=== PATIENT | female | born 1960 | race Two or more races ===

== ENCOUNTER 2024-01-22 10:56 | Outpatient (OUT) | payer OTHER, SELFPAY ==
--- NOTE | 2024-01-22 11:05 | MM_ITS ---
Patient Name: KANWAL PATE MR#: [id number] : 1960 Exam Date: 01/22/2024 Ordering Doctor: LESLEY WONG CNP RADIOLOGY REPORT PROCEDURE: MM TOMOSYNTHESIS SCREENING BI COMPARISON: None. INDICATIONS: Screening Calculator Name NCI Breast Cancer Risk Assessment Tool 5 Year Breast Cancer Risk 1.50% Lifetime Breast Cancer Risk 7.20% Personal Breast Cancer No Personal Ovarian Cancer No Treatments None Family Cancers None LOCATION: [facility] BREAST COMPOSITION: There are scattered areas of fibroglandular density. FINDINGS: DIAGNOSTIC CATEGORY 0--INCOMPLETE: NEED ADDITIONAL IMAGING EVALUATION. Scattered benign-appearing lymph nodes are present. RIGHT BREAST: 6.7 mm well-circumscribed nodule lower inner quadrant anterior right breast. Spot imaging and ultrasound follow-up recommended. LEFT BREAST: No significant suspicious finding. RECOMMENDATIONS: ADDITIONAL MAMMOGRAPHIC VIEWS REQUIRED: RIGHT BREAST - spot compression ULTRASOUND: RIGHT BREAST PLEASE NOTE: A NORMAL MAMMOGRAM DOES NOT EXCLUDE THE POSSIBILITY OF BREAST CANCER. A CLINICALLY SUSPICIOUS PALPABLE LUMP SHOULD BE BIOPSIED. Dictated by: Rivera Bose MD on 01/22/2024 at 12:07 Approved by: Rivera Bose MD on 01/22/2024 at 12:09
== END 2024-01-22 10:57 | disposition home or self-care (01) ==
LOC: MAMMO 11:00
PROVIDERS: PCP Nurse Practitioner Family; Visit Provider Nurse Practitioner Family
DX: Z12.31 Encounter for screening mammogram for malignant neoplasm of breast (principal); N63.14 Unspecified lump in the right breast, lower inner quadrant
CPT/HCPCS: 77063; 77067

== ENCOUNTER 2024-02-11 12:31 | Outpatient (OUT) | payer OTHER, SELFPAY ==
--- NOTE | 2024-02-11 12:35 | US_ITS ---
Patient Name: KANWAL PATE MR#: [id number] : 1960 Exam Date: 02/11/2024 Ordering Doctor: LESLEY WONG CNP RADIOLOGY REPORT PROCEDURE: MM DIAGNOSTIC MAMMO UNILAT RT, 02/11/2024, 12:43 US BREAST RT LIMITED, 02/11/2024, 13:43 COMPARISON: MM TOMOSYNTHESIS SCREENING BI, 01/22/2024. INDICATIONS: other abnormal findings on diagnostic imaging of breast R92. Calculator Name NCI Breast Cancer Risk Assessment Tool 5 Year Breast Cancer Risk 1.50% Lifetime Breast Cancer Risk 7.20% Personal Breast Cancer No Personal Ovarian Cancer No Treatments None Family Cancers None LOCATION: [facility] BREAST COMPOSITION: There are scattered areas of fibroglandular density. FINDINGS: DIAGNOSTIC CATEGORY 4--SUSPICIOUS FOR MALIGNANCY. FINDING DOES NOT EXHIBIT CLASSIC FINDINGS OF BREAST CANCER: 7 mm right breast nodule on spot images with a vascular mass at 5:00 measuring 4.4 x 4.2 x 4.7 mm. This is indeterminate, ultrasound core biopsy recommended RECOMMENDATIONS: ULTRASOUND-GUIDED CORE BIOPSY: RIGHT BREAST PLEASE NOTE: A NORMAL MAMMOGRAM DOES NOT EXCLUDE THE POSSIBILITY OF BREAST CANCER. A CLINICALLY SUSPICIOUS PALPABLE LUMP SHOULD BE BIOPSIED. Dictated by: Rivera Bose MD on 02/11/2024 at 14:25 Approved by: Rivera Bose MD on 02/11/2024 at 14:31
== END 2024-02-11 12:32 | disposition home or self-care (01) ==
LOC: MAMMO 12:31
PROVIDERS: PCP Nurse Practitioner Family; Visit Provider Nurse Practitioner Family
DX: R92.8 Other abnormal and inconclusive findings on diagnostic imaging of breast (principal)
CPT/HCPCS: 76642; 77065

== ENCOUNTER 2024-02-23 09:02 | Outpatient (OUT) | payer OTHER, SELFPAY ==
--- OUTSIDE RECORDS SUMMARY | 2024-02-23 09:05 | XMS_ITS | CCD ---
Author Organization [facility] Care Team Providers Care Research Environmental Scientist Name Role Phone Petar Klein MD Primary Care Provider ROSETTE BURK Referring Unavailable PETAR KLEIN Primary Care Unavailable ROSETTE BURK Referring Unavailable PETAR KLEIN Primary Care Unavailable Problems Problem Classification Problem Date Documented Da te Episodic/Chronic Nonmalignant breast conditions (2 sources) Lump in lower inner quadrant of right breast; Translations: [Unspecified lump in the right breast, lower inner quadrant] Episodic Results Test Name Value Interpretation Reference Range Facility DBT Breast - bilateral diagn osticon 07-04-2021 Radiology Study observation (narrative) [facility] MG MAMMO DIGITAL DIAGNOSTIC W MICHAEL BILATon 07-04-2021 MG MAMMO DIGITAL DIAGNOSTIC W MICHAEL BILAT EXAMINATION TYPE: US BREAST LIMITED RIGHT, MG MAMMO DIGITAL DIAGNOSTIC W MICHAEL BILAT [id number] DATE OF EXAM : 07/04/2021 10:15 AM PRIOR STUDIES: 2020 REASON FOR STUDY: Follow-up for probably benign right breast mass. TECHNIQUE: Multiple low dose images were obtained in each projection. These low-dose images were reconstructed into 1 mm thick slices and reviewed on the soft copy workstation along with additional reconstructed standard digital bilateral mammogram images. Computer-aided detection utilizing IntheGloCAD reader has been performed. RIGHT breast ultrasound was performed. BREAST COMPOSITION: B - There are scattered areas of fibroglandular density. FINDINGS: Mammogram Findings: There are no new suspicious findings in either breast. The previously identified mass in the lower inner right breast based in size mammographically. Ultrasound Findings: Targeted right breast ultrasound was performed by the coffee grinder. In the 5 o'clock axis III cm from the nipple, there is redemonstration of an oval, circumscribed anechoic to hypoechoic mass measuring 3 x 3 x 3 mm. Previously this measured 5 x 4 x 4 mm. This has findings most consistent with either a benign complicated cyst or cyst cluster. IMPRESSION: Interval decrease in size of previously identified right breast mass is suggestive of benignity. No further specific follow-up imaging of this area is required. Recommend return to annual tomosynthesis. BI-RADS Code: 2 - BENIGN RECOMMENDATION: Return to annual mammography. Return to annual mammography. COMMENTS: The findings and recommendations were discussed with the patient and any necessary follow-up imaging evaluation was scheduled prior to her departure from our department. Additionally, the results of this examination will be immediately mailed to the patient. -------- FINAL REPORT -------- Dictated By: Ksenia Robin Dictated Date: 07/04/2021 10:24 Assigned Physician: Ksenia Robin Reviewed and Electronically Signed By: Ksenia Robin Signed Date: 07/04/2021 10:30 Workstation ID: [id number] Transcribed By: Self Edit Transcribed Date: 07/04/2021 10:24 Normal [facility] Panel Information 07-04 Interval decrease in size of previously identified right breast mass is suggestive of benignity. No further specific follow-up imaging of this area is required. Recommend return to annual tomosynthesis. BI-RADS Code: 2 - BENIGN RECOMMENDATION: Return to annual mammography. Return to annual mammography. COMMENTS: The findings and recommendations were discussed with the patient and any necessary follow-up imaging evaluation was scheduled prior to her departure from our department. Additionally, the results of this examination will be immediately mailed to the patient. -------- FINAL REPORT -------- Dictated By: Ksenia Robin Dictated Date: 07/04/2021 10:24 Assigned Physician: Ksenia Robin Reviewed and Electronically Signed By: Ksenia Robin Signed Date: 07/04/2021 10:30 Workstation ID: [id number] Transcribed By: Self Edit Transcribed Date: 07/04/2021 10:24 [employer] EXAMINATION TYPE: US BREAST LIMITED RIGHT, MG MAMMO DIGITAL DIAGNOSTIC W MICHAEL BILAT [id number] DATE OF EXAM : 07/04/2021 10:15 AM PRIOR STUDIES: 2020 REASON FOR STUDY: Follow-up for probably benign right breast mass. TECHNIQUE: Multiple low dose images were obtained in each projection. These low-dose images were reconstructed into 1 mm thick slices and reviewed on the soft copy workstation along with additional reconstructed standard digital bilateral mammogram images. Computer-aided detection utilizing NewsyD reader has been performed. RIGHT breast ultrasound was performed. BREAST COMPOSITION: B - There are scattered areas of fibroglandular density. FINDINGS: Mammogram Findings: There are no new suspicious findings in either breast. The previously identified mass in the lower inner right breast based in size mammographically. Ultrasound Findings: Targeted right breast ultrasound was performed by the coffee grinder. In the 5 o'clock axis III cm from the nipple, there is redemonstration of an oval, circumscribed anechoic to hypoechoic mass measuring 3 x 3 x 3 mm. Previously this measured 5 x 4 x 4 mm. This has findings most consistent with either a benign complicated cyst or cyst cluster. Ksenia Erazo MD - 07/04/2021 EXAMINATION TYPE: US BREAST LIMITED RIGHT, MG MAMMO DIGITAL DIAGNOSTIC W MICHAEL BILAT [id number] DATE OF EXAM : 07/04/2021 10:15 AM PRIOR STUDIES: 2020 REASON FOR STUDY: Follow-up for probably benign right breast mass. TECHNIQUE: Multiple low dose images were obtained in each projection. These low-dose images were reconstructed into 1 mm thick slices and reviewed on the soft copy workstation along with additional reconstructed standard digital bilateral mammogram images. Computer-aided detection utilizing IntheGloCAD reader has been performed. RIGHT breast ultrasound was performed. BREAST COMPOSITION: B - There are scattered areas of fibroglandular density. FINDINGS: Mammogram Findings: There are no new suspicious findings in either breast. The previously identified mass in the lower inner right breast based in size mammographically. Ultrasound Findings: Targeted right breast ultrasound was performed by the coffee grinder. In the 5 o'clock axis III cm from the nipple, there is redemonstration of an oval, circumscribed anechoic to hypoechoic mass measuring 3 x 3 x 3 mm. Previously this measured 5 x 4 x 4 mm. This has findings most consistent with either a benign complicated cyst or cyst cluster. IMPRESSION: Interval decrease in size of previously identified right breast mass is suggestive of benignity. No further specific follow-up imaging of this area is required. Recommend return to annual tomosynthesis. BI-RADS Code: 2 - BENIGN RECOMMENDATION: Return to annual mammography. Return to annual mammography. COMMENTS: The findings and recommendations were discussed with the patient and any necessary follow-up imaging evaluation was scheduled prior to her departure from our department. Additionally, the results of this examination will be immediately mailed to the patient. -------- FINAL REPORT -------- Dictated By: Ksenia Robin Dictated Date: 07/04/2021 10:24 Assigned Physician: Ksenia Robin Reviewed and Electronically Signed By: Ksenia Robin Signed Date: 07/04/2021 10:30 Workstation ID: [id number] Transcribed By: Self Edit Transcribed Date: 07/04/2021 10:24 [facility] No Panel InformationOrdered By: Ksenia Mullen on 07-04-2021 [facility] Work Phone: US BREAST LIMITED RIGHTon US BREAST LIMITED RIGHT EXAMINATION TYPE : US BREAST LIMITED RIGHT, MG MAMMO DIGITAL DIAGNOSTIC W MICHAEL BILAT [id number] DATE OF EXAM : 07/04/2021 10:15 AM PRIOR STUDIES: 2020 REASON FOR STUDY: Follow-up for probably benign right breast mass. TECHNIQUE: Multiple low dose images were obtained in each projection. These low-dose images were reconstructed into 1 mm thick slices and reviewed on the soft copy workstation along with additional reconstructed standard digital bilateral mammogram images. Computer-aided detection utilizing IntheGloCAD reader has been performed. RIGHT breast ultrasound was performed. BREAST COMPOSITION: B - There are scattered areas of fibroglandular density. FINDINGS: Mammogram Findings: There are no new suspicious findings in either breast. The previously identified mass in the lower inner right breast based in size mammographically. Ultrasound Findings: Targeted right breast ultrasound was performed by the coffee grinder. In the 5 o'clock axis III cm from the nipple, there is redemonstration of an oval, circumscribed anechoic to hypoechoic mass measuring 3 x 3 x 3 mm. Previously this measured 5 x 4 x 4 mm. This has findings most consistent with either a benign complicated cyst or cyst cluster. IMPRESSION: Interval decrease in size of previously identified right breast mass is suggestive of benignity. No further specific follow-up imaging of this area is required. Recommend return to annual tomosynthesis. BI-RADS Code: 2 - BENIGN RECOMMENDATION: Return to annual mammography. Return to annual mammography. COMMENTS: The findings and recommendations were discussed with the patient and any necessary follow-up imaging evaluation was scheduled prior to her departure from our department. Additionally, the results of this examination will be immediately mailed to the patient. -------- FINAL REPORT -------- Dictated By: Ksenia Robin Dictated Date: 07/04/2021 10:24 Assigned Physician: Ksenia Robin Reviewed and Electronically Signed By: Ksenia Robin Signed Date: 07/04/2021 10:30 Workstation ID: [id number] Transcribed By: Self Edit Transcribed Date: 07/04/2021 10:24 Normal [facility] US Breast Limited Righton Radiology Study observation (narrative) [facility] US Breast Uni Limited RTo n 01-03-2021 SC US Breast Uni Limited RT EXAMINATION TYPE: SC US Breast Uni Limited RT DATE OF EXAM : 01/03/2021 9:54 AM PATIENT HISTORY: Menarche at age 17. First Full-Term at age 25. Postmenopausal. Maternal aunt had breast cancer. PRIOR STUDIES: 08/18/2003, 06/07/2007, 12/24/2009, 07/02/2020 REASON FOR STUDY: Probably benign right breast mass, 6 month follow-up TECHNIQUE: Targeted ultrasound of the right breast was performed. FINDINGS: At 5 o'clock, 3 cm from the nipple, and just deep to the skin, there is a circumscribed round mass measuring 0.5 x 0.4 x 0.4 cm, unchanged in size. The mass contains echogenic internal reflectors similar to the prior study. There has been no significant interval change. IMPRESSION: Stable benign-appearing 0.5 cm right breast mass suggestive of a complicated cyst. Continued surveillance with targeted ultrasound is recommended in 6 months when the patient is due for her next bilateral mammogram. BI-RADS Code: 3-Probably benign RECOMMENDATION: 1. Diagnostic Ultrasound Right in 6 months 2. Diagnostic Tomosynthesis Bilateral in 6 months COMMENTS: The findings and recommendations were discussed with the patient and any necessary follow-up imaging evaluation was scheduled prior to her departure from our department. Additionally, the results of this examination will be immediately mailed to the patient. Leidy Bautista thanks you for the opportunity to care for your patient. Workstation ID: [id number] - [id number] FINAL REPORT Dictated By: Rosette Burk MD 01/03/2021 09:55 Assigned Physician: Rosette Burk MD Reviewed and Electronically Signed By: Rosette Burk MD 01/03/2021 09:57 Transcribed by: JESSICA 01/03/2021 09:55 Technologist: [facility] US Breast Uni Limited RTo n 07-05-2020 SC US Breast Uni Limited RT EXAMINATION TYPE: SC US Breast Uni Limited RT DATE OF EXAM : 07/05/2020 11:16 AM PATIENT HISTORY: Menarche at age 17. First Full-Term at age 25. Postmenopausal. Maternal aunt had breast cancer. PRIOR STUDIES: 08/18/2003, 06/07/2007, 12/24/2009, 07/02/2020 REASON FOR STUDY: mass. TECHNIQUE: Focused sonographic imaging. FINDINGS: Within the anterior right breast 5 o'clock position 3 cm from the nipple there is a predominantly anechoic avascular oval mass with circumscribed margins demonstrating posterior enhancement measuring 5 x 3 x 4 mm. It does contain a few bright reflectors suggestive of calcifications. This corresponds to the mass on recent screening mammogram. IMPRESSION: Benign-appearing 5 mm mass 5 o'clock right breast suggestive of a complicated cyst BI-RADS Code: 3-Probably benign RECOMMENDATION: 1. Diagnostic Ultrasound Right in 6 months COMMENTS: Results of the exam were discussed with the patient and will immediately be mailed to the patient. Leidy Bautista thanks you for the opportunity to care for your patient. Workstation ID: [id number] - [id number] FINAL REPORT Dictated By: Fabi Gomez MD 07/05/2020 11:19 Assigned Physician: Fabi Gomez MD Reviewed and Electronically Signed By: Fabi Gomez MD 07/05/2020 11:21 Transcribed by: JESSICA 07/05/2020 11:19 Technologist: [facility] Mammo Digital Screening b ilat (NB)on 07-02-2020 DRAKE Mammo Digital Screening bilat (NB) EXAMINATION TYPE: DRAKE Mammo Digital Screening bilat (NB) DATE OF EXAM ORDERED: 07/02/2020 11:22 AM PATIENT HISTORY: Menarche at age 17. First Full-Term at age 25. Postmenopausal. Maternal aunt had breast cancer. PRIOR STUDIES: 08/18/2003, 06/07/2007, 12/24/2009 REASON FOR STUDY: Breast Screening TECHNIQUE: Digital mammography views were obtained. Computer-aided detection utilizing IntheGloCAD reader has been performed. BREAST COMPOSITION: There are scattered areas of fibroglandular density FINDINGS: There is a new mass in the anterior 3rd right breast 5 o'clock position 1.5 cm from the nipple, measuring 5 x 4 x 5 mm in size. Diagnostic evaluation recommended. No other new mass or change in architectural pattern or distribution seen. No suspicious calcifications in either breast. No adenopathy IMPRESSION: Diagnostic breast imaging evaluation recommended for new mass right breast measuring 5 x 4 x 5 mm at 5 o'clock, 1.5 cm from nipple. BI-RADS Code: 0-Needs Additional Imaging Evaluation RECOMMENDATION: Diagnostic Breast Ultrasound Right COMMENTS: No additional comments As per federal [place] guidelines, a result letter will be sent to the patient. [employer] thanks you for the opportunity to care for your patient. Workstation ID: [id number] - [id number] FINAL REPORT Dictated By: Damaris Barton MD 07/02/2020 11:41 Assigned Physician: Damaris Barton MD Reviewed and Electronically Signed By: Damaris Barton MD 07/02/2020 12:12 Transcribed by: JESSICA 07/02/2020 11:41 Technologist: JULIO Ward [facility] Lipid Profileon 07-01-2020 Cholesterol [Mass/Vol] 258 mg/dL High 95-195 Na [facility] Comment on above: Performed By: #### L IPP #### Performed at [facility], [address], [place] [address] Cholesterol in HDL [Mass/Vol] 97 mg/dL High 41-73 [facility] Comment on above: Performed By: #### L IPP #### Performed at [address] [address] Cholesterol in LDL [Mass/Vol] 144 mg/dL Normal 113-177 [facility] Comment on above: Performed By: #### L IPP #### Performed at [address] [address] Triglyceride [Mass/Vol] 88 mg/dL Normal 29-200 N [facility] Comment on above: Performed By: #### L IPP #### [place] [address] VLDL Cholesterol 18 mg/dL Normal 17-39 [facility] Comment on above: Performed By: #### L IPP #### Performed at [address] [address] TSHon 07-01-2020 TSH Qn 1.457 uIU/mL Normal 0.400-4.000 [facility] CBC Auto Diff Reflex Manualo n 06-30-2020 Automated Absolute Neutrophil 1.85 10*3/mm3 Normal [facility] Comment on above: Result Comment: Auto mated Absolute Neutrophil Count (ANC) is directly measured using a hematology instrument. ANC determined from manual differential cell count may differ. No [facility] reference range has been validated for this assay. Performed By: #### C D #### Performed at [facility], [address], [place] [address] Basophil 0.5 % Normal 0.2-1.6 [facility] Comment on above: Performed By: #### C D #### Performed at [facility], [address], [place] [address] Basophils (Bld) [#/Vol] 0.02 10*3/uL Normal [facility] Comment on above: Performed By: #### C D #### Performed at [facility], [address], [place] [address] Comment Normal [facility] Comment on above: Result Comment: No r eference range established for absolute counts. Performed at [facility], [address] [place] [address], [place] [address] Performed By: #### C D #### Performed at [facility], [facility], [place] [address] Differential Type Automated Normal [facility] Comment on above: Performed By: #### C D #### Performed at [place] [address] [facility], [place] [address] Eosinophil 6.0 % Normal 0.2-8.1 [facility] Comment on above: Performed By: #### C D #### Performed at [address], [place] [address] Eosinophils (Bld) [#/Vol] 0.25 10*3/uL Normal [facility] Comment on above: Performed By: #### C D #### [place] [address] Erythrocyte distribution width (RBC) [Ratio] 14.6 % High 10-14.1 [facility] Comment on above: Performed By: #### C D #### [place] [address] Lymphocyte 39.7 % Normal 9.0-51.0 [facility] Comment on above: Performed By: #### C D #### [place] [address] Lymphocytes (Bld) [#/Vol] 1.65 10*3/uL Normal [facility] Comment on above: Performed By: #### C D #### Performed at [place] [address] [facility], [place] [id number] MCH (RBC) [Entitic mass] 31.2 pg Normal 26.0-34.0 [facility] Comment on above: Performed By: #### C D #### Performed at [place] [address] [facility], [place] [address] MCHC (RBC) [Mass/Vol] 33.8 % Normal 31.0-37.0 [facility] Comment on above: Performed By: #### C D #### [place] [address] MCV (RBC) [Entitic vol] 92.1 fL Normal 80.0-100.0 N [facility] Comment on above: Performed By: #### C D #### [place] [address] Monocyte 9.4 % Normal 4.0-13.0 [facility] Comment on above: Performed By: #### C D #### [place] [address] Monocytes (Bld) [#/Vol] 0.39 10*3/uL Normal [facility] Comment on above: Performed By: #### C D #### [place] [address] Neutrophil 44.4 % Normal 40.8-78.2 [facility] Comment on above: Performed By: #### C D #### [place] [address] Neutrophils (Bld) [#/Vol] 1.85 10*3/uL Normal [facility] Comment on above: Performed By: #### C D #### [place] [address] Platelet mean volume (Bld) [Entitic vol] 9.7 fL Normal 9.3-13.0 [facility] Comment on above: Performed By: #### C D #### [place] [address] Platelets (Bld) [#/Vol] 217 10*3/uL Normal 142-508 [facility] Comment on above: Performed By: #### C D #### [place] [address] RBC (Bld) [#/Vol] 4.43 10*6/uL Normal 4.0-5.2 [facility] Comment on above: Performed By: #### C D #### [place] [address] WBC (Bld) [#/Vol] 4.2 10*3/uL Low 4.5-11.0 [facility] Comment on above: Performed By: #### C D #### [place] [address] Comprehensive Metabolic Pane abel 06-30-2020 Albumin [Mass/Vol] 4.7 g/dL Normal 3.4-5.2 [facility] Comment on above: Performed By: #### C MTP #### [place] [address] ALP [Catalytic activity/Vol] 99 U/L Normal 50-136 [facility] Comment on above: Performed By: #### C MTP #### [place] [address] ALT [Catalytic activity/Vol] 18 U/L Normal <36 [facility] Comment on above: Performed By: #### C MTP #### [place] [address] AST [Catalytic activity/Vol] 30 U/L Normal 15-50 [facility] Comment on above: Performed By: #### C MTP #### [place] [address] Bilirubin Ql (U) 0.7 mg/dL Normal 0.1-1.0 [facility] Comment on above: Result Comment: Perf ormed at [facility], [address] [place] [address] Performed By: #### C MTP #### [place] [address] Calcium [Mass/Vol] 9.3 mg/dL Normal 8-10.5 [facility] Comment on above: Performed By: #### C MTP #### [place] [address] Chloride [Moles/Vol] 104 mmol/L Normal 98-110 May[facility] Comment on above: Performed By: #### C MTP #### Performed at [address] [address] CO2 [Moles/Vol] 25 mmol/L Normal 21-30 [facility] Comment on above: Result Comment: Note : New reference intervals, effective June 22, 2020. Performed By: #### C MTP #### Performed at [address] [address] Creatinine [Mass/Vol] 0.71 mg/dL Normal 0.5-1 [facility] Comment on above: Performed By: #### C MTP #### Performed at [address] [address] Glucose [Mass/Vol] 93 mg/dL Normal 60-115 [facility] Comment on above: Performed By: #### C MTP #### Performed at [address] [address] Potassium [Moles/Vol] 4.0 mmol/L Normal 3.6-4.9 [facility] Comment on above: Performed By: #### C MTP #### Performed at [address] [address] Protein [Mass/Vol] 7.9 g/dL Normal 6.5-8.6 [facility] Comment on above: Performed By: #### C MTP #### Performed at [address] [address] Sodium [Moles/Vol] 138 mmol/L Normal 135-145 [facility] Comment on above: Performed By: #### C MTP #### Performed at [address] [address] Urea nitrogen [Mass/Vol] 14 mg/dL Normal 5-18 [facility] Comment on above: Performed By: #### C MTP #### Performed at [address] [address] Lipid Profileon 06-30-2020 Hours Fasting 22 h Normal [facility] Comment on above: Performed By: #### L IPP #### Performed at [facility], [address] [place] [id number] Encounters Encounter Date Encounter Type Care Provider Facility Start: 07-04-2021 End: 07-05-2021 ambulatory ROSETTE BURK [facility] Start: 07-04-2021 End: 07-04-2021 Evaluation and management of inpatient [facility] 1 [facility] Start: 07-04-2021 End: 07-04-2021 Subsequent hospital visit by physician Jeromy 1 [facility] Comment on above: Unspecified lump in the right breast, lower inner quadrant Procedures Date Procedure Procedure Detail Performing Clinician Start: 07-04-2021 Us breast uni real t tammy with image limited Rosette Burk MD Work Phone: Start: 07-04-2021 Diagnostic mammograp hy computer-aided detcj bi Rosette Burk MD Work Phone: Start: 06-30-2020 Blood count hemoglobin Comment on above: Performed By: #### C D #### Performed at [facility], [address] [place] [address] Plan of Treatment Date Care Activity Detail Author Start: 07-05-2023 Screening for malign ant neoplasm of breast Breast Cancer Screening [facility] Start: 04-04-2021 Hypertension/CHF/CAD Annual BMP Blood Test Hypertension/CHF/CAD Annual BMP Blood Test [facility] Start: 05-11-2019 Adolescent depressio n screening assessment Depression Screening [facility] Start: 05-11-2019 Hepatitis C screening Hepatitis C Sc reening [facility] Start: 05-11-2019 HIV screening HIV Screening [facility] Start: 05-11-2019 Lipid panel Cholesterol Sc reening (Lipid Panel) [facility] Start: 05-11-2019 Screening for malign ant neoplasm of colon Colorectal Cancer Screening: Colonoscopy [facility] Start: 05-11-2019 [employer] [facility] [employer] Screening [employer] Screening [place] Start: 2012 Zoster Vaccines (1 of 2) Zoster Vacc giovanna (1 of 2) [facility] Start: 07-12-1983 Screening for malign ant neoplasm of cervix Cervical Cancer Screening: Pap Smear [place] Start: 1981 DTaP,Tdap,and Td Vac cines (1 - Tdap) DTaP,Tdap,and Td Vaccines (1 - Tdap) [facility] Payers Date Payer Category Payer Unknown [employer] [address] [id number] 2021-Present [phone] [address] [address] [place] [address] [id number] 2021 Unknown [id number] 1960 Unknown [id number] 1960 Unknown [id number] Social History Date Type Detail Facility Tobacco smoking stat [facility] Tobacco smoking consumption unknown [facility] Start: 1960 Sex Assigned At Not on file [facility] Exposure to SARS-CoV -2 (event) Not sure [facility] Evaluation note Note Date & Type Note Facility Evaluation note Diagnosis Unspecified lump in the right breast, lower inner quadrant documented in this encounter [facility] Summary Purpose Family History No Family History Records FoundNo Family History Records FoundNo Family History Records Found Advance Directives No Advanced Directives Records FoundDocuments on File Type Date 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 Reason for Referral Specialty Diagnoses / Procedures Referred By Kamari west Referred To Contact Radiology Diagnoses Unspecified lump in the right breast, lower inner quadrant Procedures MG Mammo Digital [place] [address] [address] [address] [facility] [place] Referral ID Status Reason Start Date Expiration Date Visits Re quested Visits Authorized [id number] Closed 01/04/2021 07/03/2021 1 1 Specialty Diagnoses / Procedures Referred By Kamari west Referred To Contact Radiology Diagnoses Unspecified lump in the right breast, lower inner quadrant Procedures [place] [address] [address] [place] [address] [facility] [place] Referral ID Status Reason Start Date Expiration Date Visits Re quested Visits Authorized [id number] Closed 01/04/2021 07/03/2021 1 1 Additional Source Comments INFORMATION SOURCE (unrecogn ized section and content) DATE CREATED AUTHOR 07/03/2020 [facility] DATE CREATED AUTHOR AUTHOR'S ORGANIZ ATION 01/04/2021 [facility] DATE CREATED AUTHOR AUTHOR'S ORGANIZ ATION 07/05/2021 [place] [facility] [place] Reason for Visit (unrecogniz ed section and content) Specialty Diagnoses / Procedures Referred By Contac t Referred To Contact Radiology Diagnoses Unspecified lump in the right breast, lower inner quadrant Procedures MG Mammo Digital [place] [address] [address] [facility] [address] [address] [facility] Referral ID Status Reason Start Date Expiration Date Visits Re quested Visits Authorized [id number] Closed 01/04/2021 07/03/2021 1 1 Specialty Diagnoses / Procedures Referred By Contnaheed t Referred To Contact Radiology Diagnoses Unspecified lump in the right breast, lower inner quadrant Procedures [place] [address] [address] [facility] [address] [address] [facility] Referral ID Status Reason Start Date Expiration Date Visits Re quested Visits Authorized [id number] Closed 01/04/2021 07/03/2021 1 1 Care Teams (unrecognized sec tion and content) Research Environmental Scientist Relationship Specialty Start Date End Date Petar Klein MD [address] [place] [address] PCP - General 01/03/21 FOR RECORDS PERTAINING TO PATIENTS WHO ARE OR HAVE BEEN ENROLLED IN A CHEMICAL DEPENDENCY/SUBSTANCEABUSE PROGRAM, SOME INFORMATION MAY BE OMITTED. This clinical summary was aggregated from multiple sources. Caution should be exercised in using it in the provision of clinical care. This summary normalizes information from multiple sources, and as a consequence, information in this document may materially change the coding, format and clinical context of patient data. In addition, data may be omitted in some cases. CLINICAL DECISIONS SHOULD BE BASED ON THE PRIMARY CLINICAL RECORDS. [facility]. provides no warranty or guarantee of the accuracy or completeness of information in this document.
[2024-02-23 09:20] LABS: Basophils Percent Auto 0.4 % (0.2-2.0); Eosinophils Absolute Auto 0.1 10^3/uL (0.0-0.7); Eosinophils Percent Auto 2.4 % (0.9-7.0); Hematocrit 42.7 % (36.0-48.0); Hemoglobin 14.5 g/dL (12.0-16.0); Immature Granulocytes Abs Auto 0.01 10^3/uL (0.00-0.03); Immature Granulocytes Pct Auto 0.2 % (0.0-0.5); Lymphocytes Absolute Auto 1.4 10^3/uL (1.2-3.8); Lymphocytes Percent Auto 25.2 % (20.5-60.0); Mean Corpuscular Hemoglobin 31.3 pg (26.7-34.0); Mean Platelet Volume 9.9 fL (9.5-13.5); Monocytes Absolute Auto 0.3 10^3/uL (0.3-0.8); Monocytes Percent Auto 6.3 % (1.7-12.0); Neutrophils Absolute Auto 3.6 10^3/uL (1.4-6.5); Neutrophils Percent Auto 65.5 % (43.0-75.0); Platelet Count 227 10^3/uL (150-450); Red Blood Count 4.64 10^6/uL (4.20-5.40); Red Cell Distribution Width 13.5 % (11.0-15.0); White Blood Count 5.4 10^3/uL (4.0-11.0)
[2024-02-23 09:55] LABS: Alanine Aminotransferase 15 U/L (14-59); Albumin Globulin Ratio 1.1; Albumin Level 4.1 g/dL (3.4-5.0); Alkaline Phosphatase 102 U/L (46-116); Anion Gap 13.1; Aspartate Amino Transferase 17 U/L (15-37); BUN Creatinine Ratio 24.2; Bilirubin Total 0.4 mg/dL (0.2-1.0); Carbon Dioxide 27.3 mmol/L (21.0-32.0); Chloride 104 mmol/L (98-107); Chol HDL Ratio 2.8; Cholesterol 266 mg/dL (<=200); Estimated GFR (African America >60 (>=60 mL/min/1.73m^2); Estimated GFR (Non-African Ame >60 (>=60 mL/min/1.73m^2); Free T3 2.76 pg/mL (2.18-3.98); Globulin 3.6 g/dL; Glucose 96 mg/dL (74-106); HDL Cholesterol 95 mg/dL (40-60); Potassium 4.4 mmol/L (3.5-5.1); Sodium 140 mmol/L (136-145); Thyroid Stimulating Hormone 1.704 uIU/mL (0.358-3.740); Total Protein 7.7 g/dL (6.4-8.2); Triglycerides 104 mg/dL (<=150); VLDL CHOLESTEROL 20.8 mg/dL
[2024-02-23 10:11] LABS: Estimated Average Glucose 111 mg/dL; Glycohemoglobin A1C 5.5 % (4.5-6.2)
[2024-02-24 11:07] LABS: Insulin 3.8 uIU/mL (2.6-24.9)
== END 2024-02-23 09:03 | disposition home or self-care (01) ==
LOC: LAB 09:03
PROVIDERS: PCP Nurse Practitioner Family; Visit Provider Nurse Practitioner Family
DX: E78.00 Pure hypercholesterolemia, unspecified (principal); R53.83 Other fatigue; R73.09 Other abnormal glucose; I10 Essential (primary) hypertension; E03.9 Hypothyroidism, unspecified
CPT/HCPCS: 36415; 80053; 80061; 83036; 83525; 84436; 84443; 84481; 85025

== ENCOUNTER 2024-03-04 10:12 | Day surgery (SDC) | payer OTHER, SELFPAY ==
--- NOTE | 2024-03-04 10:16 | US_ITS ---
[address] [address] Patient Name: KANWAL PATE MRN: [id number] date: 1960 Sex: F Assigned Patient Location: US Current Patient Location: US Accession/Order Number: [id number] Exam Date: 03/04/2024 10:30 Report Date: 03/04/2024 14:15 At the request of: LESLEY WONG Procedure: US breast vac bx w/ clip RT EXAMINATION: US breast vac bx w/ clip RT HISTORY: 7mm Right breast nodule COMPARISON: No relevant comparison available. TECHNIQUE: After obtaining informed consent, an ultrasound-guided biopsy was performed in the usual sterile manner. FINDINGS: IMAGING: Ultrasound BIOPSY NEEDLE: 13-gauge mammotome vacuum assisted core SPECIMEN TYPE, #, LOCATION: 5 samples, 5:00 cystic mass MEDICATION: 4 cc 1% buffered lidocaine superficial. 7 cc 1% buffered lidocaine with epinephrine deep COMPLICATIONS: None. LABORATORY: OTHER: Microclip successfully placed. US/US breast vac bx w/ clip RT IMPRESSION: Uneventful ultrasound guided biopsy. The patient was instructed to obtain follow up care and biopsy results from the referring physician. Electronically authenticated by: JUAN CARLOS ESCOBEDO Date: 03/04/2024 14:15
--- NOTE | 2024-03-04 10:17 | MM_ITS ---
Patient Name: KANWAL PATE MR#: [id number] : 1960 Exam Date: 03/04/2024 Ordering Doctor: LESLEY WONG CNP This report includes an Addendum and supersedes previous reports for this exam. RADIOLOGY REPORT PROCEDURE: MM POST BIOPSY RT COMPARISON: MM DIAGNOSTIC MAMMO UNILAT RT, 02/11/2024. INDICATIONS: 7mm Right breast nodule BREAST COMPOSITION: There are scattered areas of fibroglandular density. FINDINGS: Post-Procedure Mammogram for Marker Placement BIOPSY MARKER: A metallic marker has been placed in the targeted location within the lower inner quadrant of the right breast. BREAST FINDINGS: Expected post surgical changes RECOMMENDATIONS: Dictated by: Rivera Bose MD on 03/04/2024 at 12:37 Approved by: Rivera Bose MD on 03/04/2024 at 12:39 ADDENDUM: FINDINGS: DIAGNOSTIC CATEGORY 2--BENIGN FINDING: Final diagnosis : Fibrocystic change with benign apocrine cyst lining. No follow-up required RECOMMENDATIONS: ROUTINE MAMMOGRAM AND CLINICAL EVALUATION IN 12 MONTHS. Dictated by: Rivera Bose MD on 03/12/2024 at 09:19 Approved by: Rivera Bose MD on 03/12/2024 at 09:19
[2024-03-04 10:25] VITALS: BP 152/90; PULSE 64; O2SAT 99
--- OUTSIDE RECORDS SUMMARY | 2024-03-04 10:31 | XMS_ITS | CCD ---
Author Organization [facility] Care Team Providers Care Process Safety Specialist Name Role Phone Petar Klein MD Primary Care Provider [phone] ROSETTE BURK Referring Unavailable PETAR KLEIN Primary [...] diagn osticon 07-04-2021 Radiology Study observation (narrative) [facility] MG MAMMO DIGITAL DIAGNOSTIC W MICHAEL BILATon 07-04-2021 MG MAMMO DIGITAL DIAGNOSTIC W MICHAEL BILAT EXAMINATION TYPE: US BREAST LIMITED RIGHT, MG MAMMO DIGITAL DIAGNOSTIC W MICHAEL BILAT [id number] DATE OF EXAM : 07/04/2021 10:15 AM PRIOR STUDIES: 2020 REASON FOR STUDY: Follow-up for probably benign right breast mass. TECHNIQUE: Multiple low dose images were obtained in each projection. These low-dose images were reconstructed into 1 mm thick slices and reviewed on the soft copy workstation along with additional reconstructed standard digital bilateral mammogram images. Computer-aided detection utilizing MJHCAD reader has been performed. RIGHT breast ultrasound was performed. BREAST COMPOSITION: B - There are scattered areas of fibroglandular density. FINDINGS: Mammogram Findings: There are no new suspicious findings in either breast. The previously identified mass in the lower inner right breast based in size mammographically. Ultrasound Findings: Targeted right breast ultrasound was performed by the telesales team leader. In the 5 o'clock axis III cm [...] Self Edit Transcribed Date: 07/04/2021 10:24 Normal [facility] Panel Information 07-04 Interval decrease in size [...] By: Self Edit Transcribed Date: 07/04/2021 10:24 [employer] EXAMINATION TYPE: US BREAST LIMITED RIGHT, MG MAMMO DIGITAL DIAGNOSTIC W MICHAEL BILAT [id number] DATE OF EXAM : 07/04/2021 10:15 AM PRIOR STUDIES: 2020 REASON FOR STUDY: Follow-up for probably benign right breast mass. TECHNIQUE: Multiple low dose images were obtained in each projection. These low-dose images were reconstructed into 1 mm thick slices and reviewed on the soft copy workstation along with additional reconstructed standard digital bilateral mammogram images. Computer-aided detection utilizing [employer] reader has been performed. RIGHT breast ultrasound was performed. BREAST COMPOSITION: B - There are scattered areas of fibroglandular density. FINDINGS: Mammogram Findings: There are no new suspicious findings in either breast. The previously identified mass in the lower inner right breast based in size mammographically. Ultrasound Findings: Targeted right breast ultrasound was performed by the telesales team leader. In the 5 o'clock axis III cm [...] MG MAMMO DIGITAL DIAGNOSTIC W MICHAEL BILAT [id number] DATE OF EXAM : 07/04/2021 10:15 AM PRIOR STUDIES: 2020 REASON FOR STUDY: Follow-up for probably benign right breast mass. TECHNIQUE: Multiple low dose images were obtained in each projection. These low-dose images were reconstructed into 1 mm thick slices and reviewed on the soft copy workstation along with additional reconstructed standard digital bilateral mammogram images. Computer-aided detection utilizing MJHCAD reader has been performed. RIGHT breast ultrasound was performed. BREAST COMPOSITION: B - There are scattered areas of fibroglandular density. FINDINGS: Mammogram Findings: There are no new suspicious findings in either breast. The previously identified mass in the lower inner right breast based in size mammographically. Ultrasound Findings: Targeted right breast ultrasound was performed by the telesales team leader. In the 5 o'clock axis III cm [...] By: Self Edit Transcribed Date: 07/04/2021 10:24 [facility] No Panel InformationOrdered By: Ksenia Mullen on 07-04-2021 [facility] Work Phone: US BREAST LIMITED RIGHTon US BREAST LIMITED RIGHT EXAMINATION TYPE : US BREAST LIMITED RIGHT, MG MAMMO DIGITAL DIAGNOSTIC W MICHAEL BILAT [id number] DATE OF EXAM : 07/04/2021 10:15 AM PRIOR STUDIES: 2020 REASON FOR STUDY: Follow-up for probably benign right breast mass. TECHNIQUE: Multiple low dose images were obtained in each projection. These low-dose images were reconstructed into 1 mm thick slices and reviewed on the soft copy workstation along with additional reconstructed standard digital bilateral mammogram images. Computer-aided detection utilizing MJHCAD reader has been performed. RIGHT breast ultrasound was performed. BREAST COMPOSITION: B - There are scattered areas of fibroglandular density. FINDINGS: Mammogram Findings: There are no new suspicious findings in either breast. The previously identified mass in the lower inner right breast based in size mammographically. Ultrasound Findings: Targeted right breast ultrasound was performed by the telesales team leader. In the 5 o'clock axis III cm [...] Self Edit Transcribed Date: 07/04/2021 10:24 Normal [facility] US Breast Limited Righton Radiology Study observation (narrative) [facility] US Breast Uni Limited RTo n 01-03-2021 [...] by: JESSICA 01/03/2021 09:55 Technologist: [facility] Ward [facility] US Breast Uni Limited RTo n [...] by: JESSICA 07/05/2020 11:19 Technologist: [facility] Mammo Digital Screening b ilat (NB)on [...] mammography views were obtained. Computer-aided detection utilizing MJHCAD reader has been performed. BREAST COMPOSITION: There [...] letter will be sent to the patient. [place] thanks you for the opportunity to care for your patient. Workstation ID: [id number] FINAL REPORT Dictated By: Damaris Barton MD 07/02/2020 11:41 Assigned Physician: Damaris Barton MD Reviewed and Electronically Signed By: Damaris Barton MD 07/02/2020 12:12 Transcribed by: JESSICA 07/02/2020 11:41 Technologist: JULIO [facility] Lipid Profileon 07-01-2020 Cholesterol [Mass/Vol] 258 mg/dL High 95-195 Na [facility] Comment on above: Performed By: #### L IPP #### Performed at [facility], [address], [place] [address] Cholesterol in HDL [Mass/Vol] 97 mg/dL High 41-73 [facility] Comment on above: Performed By: #### L IPP #### Performed at [address] [address] Cholesterol in LDL [Mass/Vol] 144 mg/dL Normal 113-177 [facility] Comment on above: Performed By: #### L IPP #### Performed at [address] [address] Triglyceride [Mass/Vol] 88 mg/dL Normal 29-200 [facility] Comment on above: Performed By: #### L IPP #### [place] [address] VLDL Cholesterol 18 mg/dL Normal 17-39 [facility] Comment on above: Performed By: #### L IPP #### Performed at [address] [address] TSHon 07-01-2020 TSH Qn 1.457 uIU/mL Normal 0.400-4.000 [facility] CBC Auto Diff Reflex Manualo n 06-30-2020 Automated Absolute Neutrophil 1.85 10*3/mm3 Normal [facility] Comment on above: Result Comment: Auto mated Absolute Neutrophil Count (ANC) is directly measured using a hematology instrument. ANC determined from manual differential cell count may differ. No [facility] reference range has been validated for this assay. Performed By: #### C D #### Performed at [facility], [address], [place] [address] Basophil 0.5 % Normal 0.2-1.6 [facility] Comment on above: Performed By: #### C D #### Performed at [facility], [address], [place] [address] Basophils (Bld) [#/Vol] 0.02 10*3/uL Normal [facility] Comment on above: Performed By: #### C D #### Performed at [facility], [address], [place] [address] Comment Normal [facility] Comment on above: Result Comment: No r eference range established for absolute counts. Performed at [facility], [address] [place] [address], [place] [address] Performed By: #### C D #### Performed at [facility], [facility], [place] [address] Differential Type Automated Normal [facility] Comment on above: Performed By: #### C D #### Performed at [place] [address] [facility], [place] [address] Eosinophil 6.0 % Normal 0.2-8.1 [facility] Comment on above: Performed By: #### C D #### Performed at [address], [place] [address] Eosinophils (Bld) [#/Vol] 0.25 10*3/uL Normal [facility] Comment on above: Performed By: #### C D #### [place] [address] Erythrocyte distribution width (RBC) [Ratio] 14.6 % High 10-14.1 [facility] Comment on above: Performed By: #### C D #### [place] [address] Lymphocyte 39.7 % Normal 9.0-51.0 [facility] Comment on above: Performed By: #### C D #### [place] [address] Lymphocytes (Bld) [#/Vol] 1.65 10*3/uL Normal [facility] Comment on above: Performed By: #### C D #### Performed at [place] [address] [facility], [place] [id number] MCH (RBC) [Entitic mass] 31.2 pg Normal 26.0-34.0 [facility] Comment on above: Performed By: #### C D #### Performed at [place] [address] [facility], [place] [address] MCHC (RBC) [Mass/Vol] 33.8 % Normal 31.0-37.0 [facility] Comment on above: Performed By: #### C D #### [place] [address] MCV (RBC) [Entitic vol] 92.1 fL Normal 80.0-100.0 N [facility] Comment on above: Performed By: #### C D #### [place] [address] Monocyte 9.4 % Normal 4.0-13.0 [facility] Comment on above: Performed By: #### C D #### [place] [address] Monocytes (Bld) [#/Vol] 0.39 10*3/uL Normal [facility] Comment on above: Performed By: #### C D #### [place] [address] Neutrophil 44.4 % Normal 40.8-78.2 [facility] Comment on above: Performed By: #### C D #### [place] [address] Neutrophils (Bld) [#/Vol] 1.85 10*3/uL Normal [facility] Comment on above: Performed By: #### C D #### [place] [address] Platelet mean volume (Bld) [Entitic vol] 9.7 fL Normal 9.3-13.0 [facility] Comment on above: Performed By: #### C D #### [place] [address] Platelets (Bld) [#/Vol] 217 10*3/uL Normal 142-508 [facility] Comment on above: Performed By: #### C D #### [place] [address] RBC (Bld) [#/Vol] 4.43 10*6/uL Normal 4.0-5.2 [facility] Comment on above: Performed By: #### C D #### [place] [address] WBC (Bld) [#/Vol] 4.2 10*3/uL Low 4.5-11.0 [facility] Comment on above: Performed By: #### C D #### [place] [address] Comprehensive Metabolic Pane abel 06-30-2020 Albumin [Mass/Vol] 4.7 g/dL Normal 3.4-5.2 [facility] Comment on above: Performed By: #### C MTP #### [place] [address] ALP [Catalytic activity/Vol] 99 U/L Normal 50-136 [facility] Comment on above: Performed By: #### C MTP #### [place] [address] ALT [Catalytic activity/Vol] 18 U/L Normal <36 [facility] Comment on above: Performed By: #### C MTP #### [place] [address] AST [Catalytic activity/Vol] 30 U/L Normal 15-50 [facility] Comment on above: Performed By: #### C MTP #### [place] [address] Bilirubin Ql (U) 0.7 mg/dL Normal 0.1-1.0 [facility] Comment on above: Result Comment: Perf ormed at [facility], [address] [place] [address] Performed By: #### C MTP #### [place] [address] Calcium [Mass/Vol] 9.3 mg/dL Normal 8-10.5 [facility] Comment on above: Performed By: #### C MTP #### [place] [address] Chloride [Moles/Vol] 104 mmol/L Normal 98-110 [facility] Comment on above: Performed By: #### C MTP #### Performed at [address] [address] CO2 [Moles/Vol] 25 mmol/L Normal 21-30 [facility] Comment on above: Result Comment: Note : New reference intervals, effective June 22, 2020. Performed By: #### C MTP #### Performed at [address] [address] Creatinine [Mass/Vol] 0.71 mg/dL Normal 0.5-1 [facility] Comment on above: Performed By: #### C MTP #### Performed at [address] [address] Glucose [Mass/Vol] 93 mg/dL Normal 60-115 [facility] Comment on above: Performed By: #### C MTP #### Performed at [address] [address] Potassium [Moles/Vol] 4.0 mmol/L Normal 3.6-4.9 [facility] Comment on above: Performed By: #### C MTP #### Performed at [address] [address] Protein [Mass/Vol] 7.9 g/dL Normal 6.5-8.6 [facility] Comment on above: Performed By: #### C MTP #### Performed at [address] [address] Sodium [Moles/Vol] 138 mmol/L Normal 135-145 [facility] Comment on above: Performed By: #### C MTP #### Performed at [address] [address] Urea nitrogen [Mass/Vol] 14 mg/dL Normal 5-18 [facility] Comment on above: Performed By: #### C MTP #### Performed at [address] [address] Lipid Profileon 06-30-2020 Hours Fasting 22 h Normal [facility] Comment on above: Performed By: #### L IPP #### Performed at [facility], [address] [place] [address] Encounters Encounter Date Encounter Type Care Provider Facility Start: 07-04-2021 End: 07-05-2021 ambulatory ROSETTE BURK [facility] Start: 07-04-2021 End: 07-04-2021 Evaluation and management of inpatient [facility] Mg 1 [facility] Start: 07-04-2021 End: 07-04-2021 Subsequent hospital visit by physician Jeromy 1 [facility] Comment on above: Unspecified lump in [...] By: #### C D #### Performed at [facility], [address] [place] [address] Plan of Treatment Date Care Activity Detail Author Start: 07-05-2023 Screening for malign ant neoplasm of breast Breast Cancer Screening [facility] Start: 04-04-2021 Hypertension/CHF/CAD Annual BMP Blood Test Hypertension/CHF/CAD Annual BMP Blood Test [facility] Start: 05-11-2019 Adolescent depressio n screening assessment Depression Screening [facility] Start: 05-11-2019 Hepatitis C screening Hepatitis C Sc reening [facility] Start: 05-11-2019 HIV screening HIV Screening [facility] Start: 05-11-2019 Lipid panel Cholesterol Sc reening (Lipid Panel) [facility] Start: 05-11-2019 Screening for malign ant neoplasm of colon Colorectal Cancer Screening: Colonoscopy [facility] Start: 05-11-2019 Social Influencers o f Health Screening Social Influencers of Health Screening [facility] Start: 2012 Zoster Vaccines (1 of 2) Zoster Vacc giovanna (1 of 2) [facility] Start: 07-12-1983 Screening for malign ant neoplasm of cervix Cervical Cancer Screening: Pap Smear [facility] Start: 1981 DTaP,Tdap,and Td Vac cines (1 - Tdap) DTaP,Tdap,and Td Vaccines (1 - Tdap) [facility] Payers Date Payer Category Payer Unknown [employer] [address] [id number] 2021-Present [phone] [address] [address] [place] [id number] [id number] 2021 Unknown [id number] 1962 Unknown [id number] 1962 Unknown [id number] Social History Date Type Detail Facility Tobacco smoking stat [facility] Tobacco smoking consumption unknown [facility] Start: 1960 Sex Assigned At Not on file T [facility] Exposure to SARS-CoV -2 (event) Not sure [facility] Evaluation note Note Date & Type Note Facility Evaluation note Diagnosis Unspecified lump in the right breast, lower inner quadrant documented in this encounter [facility] Summary Purpose Family History No Family History Records FoundNo Family History Records FoundNo Family History Records Found Advance Directives No Advanced Directives Records FoundDocuments on File Type Date Recorded Patient Manufacturing Team Member Expl anation Power of Electronic Warfare Operator Reason for Referral Specialty Diagnoses / Procedures Referred By Kamari west Referred To Contact Radiology Diagnoses Unspecified lump in the right breast, lower inner quadrant Procedures MG Mammo Digital Diagnostic [place] [address] [address] [facility] [place] Referral ID Status Reason Start Date Expiration Date Visits Re quested Visits Authorized [id number] Closed 01/04/2021 07/03/2021 1 1 Specialty Diagnoses / Procedures Referred By Kamari west Referred To Contact Radiology Diagnoses Unspecified lump in the right breast, lower inner quadrant Procedures [place] [address] [address] [place] [address] [facility] [place] Referral ID Status Reason Start Date Expiration Date Visits Re quested Visits Authorized [id number] Closed 01/04/2021 07/03/2021 1 1 Additional Source Comments INFORMATION SOURCE (unrecogn ized section and content) DATE CREATED AUTHOR 07/03/2020 [facility] DATE CREATED AUTHOR AUTHOR'S ORGANIZ ATION 01/04/2021 [facility] DATE CREATED AUTHOR AUTHOR'S ORGANIZ ATION 07/05/2021 [facility] [place] Reason for Visit (unrecogniz ed section and content) Specialty Diagnoses / Procedures Referred By Contac t Referred To Contact Radiology Diagnoses Unspecified lump in the right breast, lower inner quadrant Procedures MG Mammo Digital [place] [address] [facility] [address] [address] [facility] Referral ID Status Reason Start Date Expiration Date Visits Re quested Visits Authorized [id number] Closed 01/04/2021 07/03/2021 1 1 Specialty Diagnoses / Procedures Referred By Contnaheed t Referred To Contact Radiology Diagnoses Unspecified lump in the right breast, lower inner quadrant Procedures [place] [address] [facility] [address] [address] [facility] Referral ID Status Reason Start Date Expiration Date Visits Re quested Visits Authorized [id number] Closed 01/04/2021 07/03/2021 1 1 Care Teams (unrecognized sec tion and content) Process Safety Specialist Relationship Specialty Start Date End Date Petar Klein MD [address] [place] [address] PCP - General 01/03/21 FOR RECORDS PERTAINING [...] BE BASED ON THE PRIMARY CLINICAL RECORDS. [facility]. provides no warranty or guarantee of the accuracy or completeness of information in this document.
[2024-03-04] MEDS: LIDOCAINE HCL 10 ML, SODIUM BICARBONATE 1 MEQ INJ (11:00)
[2024-03-04] MEDS: LIDOCAINE HCL/EPINEPHRINE 10 ML, SODIUM BICARBONATE 1 MEQ INJ (11:00)
--- NOTE | 2024-03-04 14:58 | SUR.PREOP ---
02/21/24 Pt instructed on procedure, date, time,and procedure. Pt instructed to hold ASA x 5 days prior to biopsy.
== END 2024-03-04 11:30 | disposition home or self-care (01) ==
LOC: US 10:12
PROVIDERS: Radiology Diagnostic Radiology; PCP Nurse Practitioner Family; Visit Provider Nurse Practitioner Family
DX: N60.01 Solitary cyst of right breast (principal)
CPT/HCPCS: 19083; 77065; 88305